=== PATIENT | female | born 1980 | race Caucasian/White ===

== ENCOUNTER 2020-02-12 23:42 | Emergency (ER) | payer OTHER, MEDICAID ==
[~2020-02-12] VITALS: Ht 170.2 cm; Wt 74.5 kg
--- NOTE | 2020-02-13 00:04 | NUR ---
NO ANSWER IN LOBBY OR WOMENS BATHROOM @[id number].
--- NOTE | 2020-02-13 00:47 | NUR ---
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
--- NOTE | 2020-02-13 00:49 | NUR ---
PT IN GOWN IN [facility] AT THIS TIME. PT EDUCATED ON ER PROCESS AND VERBALIZES UNDERSTANDING. CALL LIGHT IS WITHIN REACH.
--- NOTE | 2020-02-13 01:09 | NUR ---
XRAY AT BS TO IMAGE PT
[2020-02-13 01:30] VITALS: BP 110/68
[2020-02-13 01:30] LABS: BASOPHILS # (AUTO) 0.02 x10^3/uL (0-0.1); BASOPHILS % (AUTO) 0 % (0-1); EOSINOPHILS # (AUTO) 0.18 x10^3/uL (0-0.4); EOSINOPHILS % (AUTO) 2 % (1-7); LYMPHOCYTES # (AUTO) 1.02 x10^3/uL (1-3.4); LYMPHOCYTES % (AUTO) 12 % (22-44); MD NO; MEAN CORPUSCULAR HEMOGLOBIN 23.4 pg (27.0-34.8); MEAN CORPUSCULAR HGB CONC 31.1 g/dL (32.4-35.8); MEAN PLATELET VOLUME 8.9 fL (7.4-10.4); MONOCYTES # (AUTO) 0.14 x10^3/uL (0.2-0.8); MONOCYTES % (AUTO) 2 % (2-9); NEUTROPHILS # (AUTO) 7.14 x10^3/uL (1.8-6.8); NEUTROPHILS % (AUTO) 84 % (42-75); PLATELET COUNT 335 x10^3/uL (130-400); RED BLOOD COUNT 4.29 x10^6/uL (3.82-5.3); RED CELL DISTRIBUTION WIDTH 18.2 % (9.6-15.2)
[2020-02-13 01:34] LABS: ALBUMIN 2.9 g/dL (3.4-5.0); ANION GAP 11 mmol/L (5-15); CALCIUM 8.5 mg/dL (8.5-10.1); CHLORIDE 108 mmol/L (98-107); CREATININE 1.52 mg/dL (0.55-1.02)
[2020-02-13 01:38] LABS: TROPONIN I < 0.015 ng/mL (0.000-0.045)
[2020-02-13] MEDS ORDERED: FUROSEMIDE 40 MG TABLET ONE (02:22)
--- NOTE | 2020-02-13 02:25 | NUR ---
PT MEDICATED PER MAR.
[2020-02-13] MEDS ORDERED: FUROSEMIDE 40 MG TABLET PO ONE (02:30)
--- NOTE | 2020-02-13 03:45 | NUR ---
PT REFUSING EKG AT THIS TIME. DR ALBARRAN NOTIFIED. PT TO BE DISCHARGED AT THIS TIME.
--- NOTE | 2020-02-13 03:55 | NUR ---
PT D/C WITH D/C SUMMARY AND SCRIPTS. ALL QUESTIONS ANSWERED. PT AMBULATES TO REGISTRATION DESK WITH STEADY GAIT FOR D/C HOME. PT DENIES ANY OTHER NEEDS PERTAINING TO THIS VISIT.
== END 2020-02-13 03:59 | disposition home or self-care (01) ==
LOC: ED 02-13 00:40
DX: I50.22 Chronic systolic (congestive) heart failure (principal); R60.0 Localized edema; F17.210 Nicotine dependence, cigarettes, uncomplicated
CPT/HCPCS: 36415; 71045; 80048; 82040; 83880; 84484; 84703; 85025; 86901; 93970; 99285; 99406